=== PATIENT | female | born 1970 | race Caucasian/White ===

== ENCOUNTER 2016-07-23 06:10 | Observation (INO) ==
[2016-07-16 11:11] LABS: Basophils % 0.4 % (0.0-0.8); Eosinophils # 0.1 10*3/uL (0.0-0.87); Eosinophils % 0.9 % (0.00-10.9); Hematocrit 41.4 VOL% (35.7-47.0); Hemoglobin 13.4 GM/DL (12.0-16.0); Immature Granulocytes % 0.1 %; Immature Granulocytes Absolute 0.01 #; Lymphocytes # 1.7 10*3/uL (1.4-4.0); Lymphocytes % 25.9 % (21.3-54.2); Mean Corpuscular HGB Conc 32.4 GM/DL (32-36); Mean Corpuscular Hemoglobin 29 PG (27-34); Mean Corpuscular Volume 90.2 FL (87-102); Mean Platelet Volume 10.6 FL (9.6-12.0); Monocytes # 0.4 10*3/uL (0.11-0.8); Monocytes % 6.2 % (1.7-12.7); Neutrophils # 4.5 10*3/uL (1.4-7.4); Neutrophils % 66.5 % (38.7-73.9); Platelet Count 210 T/CUMM (130-400); Red Blood Count 4.59 MC/CUMM (3.8-5.5); Red Cell Distribution Width 12.1 % (9.3-17.3); White Blood Count 6.7 T/CUMM (4-12)
[2016-07-16 11:13] LABS: Apearance,Urine Slightly Hazy (Clear); Bacteria,Urine Occasional /HPF (Few); Bilirubin,Urine Negative (Negative); Blood, Urine Negative (Negative); Glucose,Urine (UA) Negative (Negative); Ketones,Urine Negative (Negative); Mucus,Urine Occasional /LPF (Occasional); Nitrite,Urine Negative (Negative); Protein,Urine Negative; RBC,Urine 2 /HPF (0-4); Squamous Epithelial Cell,Urine Occasional /HPF (0-10); Urine Color Yellow (Yellow); Urine Specific Gravity 1.018 (1.001-1.035); Urine Urobilinogen < 2.0 EU/DL (0.2-1.0); WBC,Urine 1 /HPF (0-6)
[2016-07-16 11:21] LABS: PT Patient Result 10.7 SECS; Partial Thromboplastin Time 26.3 SECS (0-40)
[2016-07-16 11:41] LABS: Calcium 8.2 MG/DL (8.5-10.1); Osmolality,Calculated 286.7 MOS/KG (273-304); Potassium 4.2 MMOL/L (3.5-5.1)
--- NOTE | 2016-07-16 11:42 | EKG Report ---
Stationary ECG Study [facility] Test Date: 07/16/2016 11:42:07 AM Pat Name: JOHANNA SAMANO Department: Room: Gender: F Conveyancer: WILFREDO 07/23/16 : 1970 Requested by: Jesus Lees Order Number: [id number] Reading MD: TRISTA DOUGLAS Intervals [place] Rate: 58 P: 60 SC: 169 QRS: 82 QRSD: 93 T: 73 QT: 424 QTc: 420 Interpretive Statements SINUS RHYTHM Electronically Signed On 07-16-16 12:44:45 CDT by TRISTA DOUGLAS [email or web address]
--- NOTE | 2016-07-16 14:22 | XRay Report ---
XR chest 2V Indication: Preop evaluation Comparison: None Technique: Frontal and lateral views of the chest Findings: Heart size appears within normal limits. No focal consolidation, pleural effusion, or pneumothorax. Osseous and surrounding soft tissue structures demonstrate no acute abnormality. IMPRESSION: No acute cardiopulmonary process demonstrated. PROCEDURE INTERPRETED AT [facility] DEPARTMENT OF RADIOLOGY Final Report Signed by: Dr Neto Patterson
[2016-07-23] MEDS ORDERED: MINERAL OIL (TOPICAL) 25 ML BOTTLE TOP ONE (06:14)
[2016-07-23] MEDS ORDERED: TISSUE ADHESIVE 1 EACH APPLICATOR TOP ONE (06:14)
[2016-07-23] MEDS ORDERED: ceFAZolin 1,000 MG VIAL ONE (06:38)
[2016-07-23] MEDS ORDERED: SODIUM CHLORIDE 0.9% 100 ML IV ONE (06:38)
--- NOTE | 2016-07-23 06:53 | History and Physical Update ---
History and Physical Update - History and Physical H&P was reviewed, the patient examined and there: are no changes in the patients condition since last H&P was completed.
[2016-07-23] MEDS ORDERED: DEXAMETHASONE 4 MG/1 ML VIAL ONE (07:00)
[2016-07-23] MEDS ORDERED: LIDOCAINE 2% 5 ML VIAL ONE (07:00)
[2016-07-23] MEDS ORDERED: ONDANSETRON 4 MG/2 ML VIAL ONE ×2 (07:00→09:32)
[2016-07-23] MEDS ORDERED: FUROSEMIDE 20 MG/2 ML VIAL ONE (07:00)
[2016-07-23] MEDS ORDERED: ROCURONIUM 100 MG/10 ML VIAL IV ONE (07:00)
[2016-07-23] MEDS ORDERED: PROPOFOL 200 MG/20 ML VIAL IV ONE (07:00)
[2016-07-23] MEDS ORDERED: LACTATED RINGERS 1,000 ML IV SCH (07:00)
[2016-07-23] MEDS ORDERED: GLYCOPYRROLATE 0.4 MG/2 ML VIAL ONE (07:00)
[2016-07-23] MEDS ORDERED: NEOSTIGMINE 10 MG/10 ML VIAL ONE (07:00)
--- NOTE | 2016-07-23 07:10 | OB/GYN History & Physical ---
History of Present Illness Chief complaint: Recurrent cervical dysplasia uterovaginal prolapse History of present illness: Ms. Hamilton is a 46 year old female With recurrent cervical dysplasia is been treated before with LEEP procedure. Patient is a 6 para 4 with 4 and 's has stage II to III uterovaginal prolapse which is symptomatic requests definitive surgical treatment of the above consist of single site total abdominal hysterectomy with Clinton culdoplasty cystoscopy and possible bilateral salpingo-oophorectomy Home Medications Medication Instructions Recorded Confirmed Type No Known Home Medications [No 07/16/16 07/16/16 History Known Home Medications] Allergies Allergy/AdvReac Type Severity Reaction Status Date / Time aspirin AdvReac Severe Swelling Verified 07/16/16 11:10 of Lip/Tongue/Throat 12 point system: reviewed and no additional remarkable complaints except as stated Medical,Surgical,& Family Hx - Medical History Neurology: No history of: Seizures Respiratory: No history of: Respiratory Problems (FLU VAC- NO; PNEU VAC- NO.) Musculoskeletal: History of: Musculoskeletal Problems (RT WRIST FX) Reproductive: History of: Complication (MISCARRIAGE), Reproductive Problems (CERVICAL HARDENED.) - Surgical History Reproductive Surgeries: Surgical HX of;: Dilation and Curettage (X1 1994) Orthopedic Surgeries: Surgical HX of;: Orthopedic Surgery (RT WRIST SURGERY.) - Family History Family History: Reports;: Additional Family History (mother-thyroid and arthritis) - Social History Smoking Status: Never smoker Frequency of Alcohol Use: None Type of Drug Use: None 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 - Constitutional Vitals: Vital Signs Temp Pulse Resp BP Pulse Ox 07/23/16 06:25 98.2 F 67 20 121/84 100 General appearance: normal weight - Head Head exam: Present: normal inspection, normocephalic, atraumatic - Eye Eye exam: Present: EOMI - Neck Neck exam: Present: normal inspection - Respiratory Respiratory exam: Present: clear to auscultation bilaterally - Breast Breasts: as per HPI Menstruation: as per HPI - Cardiovascular Cardiovascular exam: Present: regular rate and rhythm - GI/Abdominal GI/Abdominal exam: Present: normal bowel sounds - Extremities Exam Extremities exam: Present: normal inspection, normal capillary refill - Back Exam Back exam: Present: normal inspection - Neurological Exam Neurological exam: Present: alert, oriented X3 - Psychiatric Psychiatric exam: Present: normal affect, normal mood - Skin Skin exam: Present: normal color, warm Assessment and Plan (1) Cervical dysplasia Status: Acute Current Visit: Yes (2) Uterovaginal prolapse, incomplete Status: Acute Current Visit: Yes Results - Labs CBC & BMP: 07/16/16 11:03 07/16/16 11:03
[2016-07-23 08:00] LABS: Apearance,Urine CLEAR (Clear); Bilirubin,Urine Negative (Negative); Blood, Urine Small mg/dL (Negative); Glucose,Urine (UA) Negative (Negative); Ketones,Urine Negative (Negative); Mucus,Urine Occasional /LPF (Occasional); Nitrite,Urine Negative (Negative); Protein,Urine Negative; RBC,Urine 3 /HPF (0-4); Squamous Epithelial Cell,Urine Occasional /HPF (0-10); Urine Color Yellow (Yellow); Urine Specific Gravity 1.018 (1.001-1.035); Urine Urobilinogen < 2.0 EU/DL (0.2-1.0); WBC,Urine 1 /HPF (0-6)
--- NOTE | 2016-07-23 08:47 | Operative Note ---
Date of procedure: 07/23/16 Pre-op diagnosis: Recurrent cervical dysplasia symptomatic prolapse Post-op diagnosis: same Procedure: PROCEDURE: 1. SINGLESITE TOTAL LAPAROSCOPIC HYSTERECTOMY. 2. BILATERAL SALPINGO-OOPHORECTOMY. 3. RAYO CULDOPLASTY. 4. CYSTOSCOPY. SURGEON: Jesus Mcgee MD ANESTHESIA: Endotracheal. FINDINGS: 1. Uterus 12 weeks size mottled in appearance 2. Normal-appearing tubes and ovaries bilaterally 3. Normal cystoscopy with normal efflux from both ureteral orifices following administration of Lasix and no compromise of bladder wall or urethra. COMPLICATIONS: None. ESTIMATED BLOOD LOSS: 25 cc. DRAINS: Shelton to gravity. DISPOSITION: Patient to Recovery Room in stable condition. OPERATIVE DESCRIPTION: After the risks, benefits and alternatives were explained to the patient in detail and informed consent was obtained, the patient was taken to the Operating Room where she was placed in supine position. After achieving appropriate general endotracheal anesthesia, the patient was carefully repositioned in lithotomy position in Karlo stirrups. Perineum, vagina, and abdomen were prepped and draped in usual sterile fashion. Shelton catheter was placed and revealed clear urine. After the appropriate timeout, a weighted speculum was placed in the vagina and anterior lip of the cervix was grasped with a single-tooth tenaculum and uterus sounded to 8 cm. A large VCare manipulator was placed, secured into position on the anterior lip of the cervix using 0 Vicryl sutures. The cervical cap was placed followed by the plastic occluder, which was snugged into position with appropriate placement confirmed digitally as well as visually. The KIRSTEN balloon occluder was back-loaded on the apparatus to maintain pneumo-occlusion. After re-gloving, with the patient flat and OG tube in place, an intraumbilical incision was made using a #11 knife. The skin edges were everted. S-retractor was used to dissect down to the fascia. The fascia was identified and grasped using Joey clamps and entered using the curved Ramos scissors. The peritoneum was entered bluntly using finger dissection. The SingleSite Multi GelPort was then introduced through the intra-umbilical incision and secured into position. The abdomen was insufflated. There was no evidence of any damage to underlying structures upon visualization through 5 mm flexible scope. The patient was then placed in Trendelenburg and bowel swept away cephalad using blunt probe. The pelvis was then inspected. The uterus was noted to be 10-12 weeks size hypermobile tubes and ovaries are visualized noted to be within normal limits. Ureters were identified bilaterally the IP ligaments were identified above the level of the ureters and there were taken down using the PK halo and abdominal burning technique and this is carried out through the round ligaments bilaterally. While maintaining cephalad traction on the beaker manipulator by va a bladder flap was created anteriorly off the lower uterine segment using monopolar scissors. The uterine vessels were skeletonized bilaterally taken down using the PK halo and a double burn technique. The cervix was transected from the vagina at the level vaginal fornices between the uterosacral ligaments using monopolar energy and using the rim of the care manipulator as a template was completely transected away. Specimen was removed to the mid vagina to maintain the moment occlusion. Visualization of the cuff revealed hemostasis excellent. Vaginal cuff was closed using 0V lock suture in a running fashion being in the right inguinal ligament past the midline and incorporating uterosacral ligaments to the midline in a Rayo fashion. Both ureters were noted to be peristalsing and are nondilated. Hemostasis of the cuff was noted to be excellent all instruments were removed the abdomen was completely desufflated the patient placed in a level position the single site multi GelPort removed and the fascia closed with 0 Vicryl suture in a running fashion. The skin was closed using 4-0 Vicryl suture in the subcu jugular fashion by Fanny Parish followed by Dermabond. Shelton catheter was removed. Cystoscopy was performed which revealed good efflux from both ureteral orifices following administration of intravenous Lasix. There was no compromise of the bladder wall or urethra. The cystoscope was then removed. Shelton catheter was then replaced. Vaginal cuff is noted to be intact however was reinforced using #1 Monocryl suture in a running interlocking fashion medium but angles are dropped slightly in the midline. The patient taken out of the lithotomy position and awoken from anesthesia without complication and taken to Recovery Room in stable condition. All sponge , needle and instrument counts were correct at the end of the procedure. Anesthesia: GETA Surgeon / Physician: Jesus Mcgee Estimated blood loss: minimal Specimens: other (Uterus and cervix to pathology) Condition: stable Disposition: floor Results - Labs CBC & BMP: 07/16/16 11:03 07/16/16 11:03 Discharge Plan - Discharge Data Disposition: Disch To Home/Self Care Condition at Discharge: Stable Discharge Diet: advance to your usual diet Activity: increase activity as tolerated, no lifting, other (Pelvic rest) Hygiene: may shower Weight Bearing at Discharge: full weight bearing Driving: not until seen by doctor Contact your physician if you experience:: fever over 101, Difficulty voiding, Redness or swelling, Nausea/Vomiting, Shortness of breath, Bleeding, pain uncontrolled by pain medications - Discharge Medications New oxyCODONE/ACETAMINOPHEN 5-325 [Percocet 5-325] 1 tablet PO Q4H PRN #20 tablet PRN Reason: Abdominal Pain - Follow Up or Referral Follow Up: Jesus Mcgee MD [Primary Care Provider] - 2 Weeks - Forms/Instructions
[2016-07-23] MEDS ORDERED: oxyCODONE/ACETAMINOPHEN 5-325 MG TABLET PO PRN (08:49)
[2016-07-23] MEDS ORDERED: BISACODYL 10 MG SUPP RECTAL PRN (08:49)
[2016-07-23] MEDS ORDERED: BENZOCAINE/MENTHOL LOZENGE 18/BOX PO PRN (08:49)
[2016-07-23] MEDS ORDERED: IBUPROFEN 800 MG TABLET PO PRN (08:49)
[2016-07-23] MEDS ORDERED: DOCUSATE SODIUM 100 MG CAPSULE PO PRN (08:49)
[2016-07-23] MEDS ORDERED: ONDANSETRON 4 MG/2 ML VIAL IV PRN ×2 (08:49→09:18)
[2016-07-23] MEDS ORDERED: ACETAMINOPHEN 325 MG TABLET PO PRN (08:49)
[2016-07-23] MEDS ORDERED: MAGNESIUM HYDROXIDE SUSP 30 ML UDCUP PO PRN (08:49)
--- NOTE | 2016-07-23 09:02 | Anesthesia ---
Anesthesia Post OP - Post Ansesthetic Evaluation Patient seen in post op: Yes Resp: within normal limits CV: within normal limits Mental: within normal limits Temp: within normal limits [id number]: within normal limits Nausea and Vomiting: within normal limits Pain: within normal limits
[2016-07-23] MEDS ORDERED: SEVOFLURANE 1 UNIT/15 MINUTE INH ONE (09:04)
[2016-07-23] MEDS ORDERED: MIDAZOLAM 2 MG/2 ML VIAL ONE (09:04)
[2016-07-23] MEDS ORDERED: SUFentanil 50 MCG/ML AMP ONE (09:05)
[2016-07-23] MEDS ORDERED: ACETAMINOPHEN 1,000 MG/100 ML VIAL IV ONE (09:05)
[2016-07-23] MEDS ORDERED: HYDROmorphone 2 MG/1 ML VIAL IV PRN (09:18)
[2016-07-23] MEDS ORDERED: MEPERIDINE 25 MG/1 ML VIAL IM ONE (09:28)
[2016-07-23] MEDS ORDERED: MEPERIDINE 25 MG/1 ML VIAL ONE (09:32)
[2016-07-23] MEDS ORDERED: HYDROmorphone 2 MG/1 ML VIAL ONE (09:47)
[2016-07-23] MEDS ORDERED: SIMETHICONE CHEW 80 MG TABLET PO PRN (13:33)
[2016-07-23] MEDS: LACTATED RINGERS 1,000 ML IV SCH ×2 (14:36→17:20)
--- NOTE | 2016-07-23 18:26 | OB/GYN Progress Note ---
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 - Constitutional Vitals: Vital Signs Temp Pulse Pulse Resp BP Pulse Ox Pulse Ox 07/23/16 16:00 97.9 F 73 18 104/54 97 07/23/16 13:00 65 18 97/52 98 07/23/16 12:00 97.7 F 75 18 98 07/23/16 11:00 71 16 104/58 97 07/23/16 10:26 68 16 113/63 97 07/23/16 10:11 97.6 F 73 16 113/71 96 07/23/16 10:04 97.6 F 68 16 113/71 97 07/23/16 09:52 99.1 F 68 15 116/71 97 07/23/16 09:50 67 19 116/71 97 07/23/16 09:40 70 18 111/73 97 07/23/16 09:30 77 16 123/75 95 07/23/16 09:20 93 H 20 120/95 96 07/23/16 09:10 65 22 126/74 100 07/23/16 09:05 64 17 123/71 99 07/23/16 09:00 64 18 112/69 98 07/23/16 08:56 97.5 F L 63 18 118/71 98 07/23/16 06:25 98.2 F 67 20 121/84 100 Pulse Ox 07/23/16 16:00 07/23/16 13:00 07/23/16 12:00 98 07/23/16 11:00 07/23/16 10:26 07/23/16 10:11 07/23/16 10:04 07/23/16 09:52 07/23/16 09:50 07/23/16 09:40 07/23/16 09:30 07/23/16 09:20 07/23/16 09:10 07/23/16 09:05 07/23/16 09:00 07/23/16 08:56 07/23/16 06:25 Results - Labs CBC & BMP: 07/16/16 11:03 07/16/16 11:03
[2016-07-24] MEDS: LACTATED RINGERS 1,000 ML IV SCH (01:06)
[2016-07-24 06:13] LABS: Basophils % 0.1 % (0.0-0.8); Eosinophils % 0.2 % (0.00-10.9); Hematocrit 33.7 VOL% (35.7-47.0); Hemoglobin 11.3 GM/DL (12.0-16.0); Immature Granulocytes % 0.4 %; Immature Granulocytes Absolute 0.06 #; Lymphocytes # 2.3 10*3/uL (1.4-4.0); Mean Corpuscular HGB Conc 33.5 GM/DL (32-36); Mean Corpuscular Hemoglobin 29 PG (27-34); Mean Corpuscular Volume 87.8 FL (87-102); Mean Platelet Volume 11.2 FL (9.6-12.0); Monocytes # 1.3 10*3/uL (0.11-0.8); Monocytes % 9.4 % (1.7-12.7); Neutrophils # 10.5 10*3/uL (1.4-7.4); Neutrophils % 73.9 % (38.7-73.9); Platelet Count 169 T/CUMM (130-400); Red Blood Count 3.84 MC/CUMM (3.8-5.5); Red Cell Distribution Width 12.1 % (9.3-17.3); White Blood Count 14.2 T/CUMM (4-12)
[2016-07-24 07:27] VITALS: BP 100/49
--- NOTE | 2016-07-28 13:19 | Pathology Report from [facility] ---
ACCESSION # : [id number] PATIENT NAME : Leatha Hamilton ORDERING DR : SAVITA SPENCER MD CLINICAL HX: Moderate dysplasia POST-OP DX: Same SPECIMEN INFO: Uterus, cervix GROSS DESCRIPTION: Received in formalin labeled "LEATHA HAMILTON" is a 125 gm uterus and cervix measuring 8.3 x 6.3 x 4.3 cm. The serosa is red byrd and free of adhesions. The cervix measures 3.0 cm. The cervical os measures 0.6 cm. The endocervical canal is byrd and patent. The endometrial cavity is hemorrhagic with a mucosal thickness of 0.3 cm. Sectioning reveals changes which are possibly consistent with adenomyosis. Sections submitted A-Cervix 12-3:00, B&C- Cervix 3-6:00, D&E-Cervix, 6-9:00, F-Cervix, 9-12:00, G&H-Endomyometrium, I- Posterior uterine serosa. DIAGNOSIS FOR LEATHA HAMILTON: UTERUS AND CERVIX: Chronic cystic cervicitis with ulceration; focal koilocytic atypia c/w mild dysplasia/LSIL/CIN1; no definite involvement of exocervical margin or endocervix. Early secretory endometrium. Adenomyosis. SERVICE DATE: 07/23/2016 REPORT DATE: 07/24/2016 PATHOLOGIST: Yaniv Sullivan
== END 2016-07-24 09:20 | disposition home or self-care (01) ==
LOC: N.OB 06:10 → N.SDSINP 06:10 → N.OR 06:10
PROVIDERS: ADMIT Specialist; ATTEND Specialist